=== PATIENT | male | born 1970 | race Caucasian/White ===

== ENCOUNTER 2018-02-10 16:51 | Emergency (ER) | payer MEDICARE ==
[~2018-02-10] VITALS: Ht 190.5 cm; Wt 76.0 kg
[2018-02-10 17:33] VITALS: BP 159/75; PULSE 71; RESP 16; TEMP 98.7; O2SAT 99
--- NOTE | 2018-02-10 18:21 | PD ---
HPI Chief Complaint: Musculoskeletal Complaint Time Seen by Provider: 18:11 Travel History International Travel<30 days: No Contact w/Intl Traveler<30days: No Traveled to known affect area: No History of Present Illness HPI 47-year-old male here for evaluation of left upper back pain that radiates around to his left anterior chest. Pain started 4 days ago while at rest. Pain is sharp, worse with movements, palpation, and inspiration. He reports that he is unable to take a deep breath because of the pain. He smokes about a half pack of cigarettes daily. Denies any history of cardiac disease. No history of DVT or PE. He does have a benign brain tumor and is currently on antibiotics for it. No hemoptysis. [facility] Social History Tobacco Use: Yes Allergies-Medications (Allergen,Severity, Reaction): Coded Allergies: No Known Allergies (Unverified , 02/10/18) Review of Systems Except as stated in HPI: all other systems reviewed are Neg Physical Exam Narrative GENERAL: Well-developed, well-nourished, comfortable, no apparent distress. SKIN: Focused skin assessment warm/dry. No rash. HEAD: Atraumatic. Normocephalic. EYES: Pupils equal and round. No scleral icterus. No injection or drainage. ENT: Mucous membranes pink and moist. NECK: Trachea midline. No JVD. CARDIOVASCULAR: Regular rate and rhythm. No murmur appreciated. RESPIRATORY: No accessory muscle use. Clear to auscultation. Breath sounds equal bilaterally. GASTROINTESTINAL: Abdomen soft, non-tender, nondistended. MUSCULOSKELETAL: Moderate left upper back, lateral chest wall, and anterior chest wall tenderness without crepitus, without step-off, without paradoxical chest wall movements. No midline vertebral step-off or tenderness. No obvious deformities. No clubbing. No cyanosis. No edema. NEUROLOGICAL: Awake and alert. No obvious cranial nerve deficits. Motor grossly within normal limits. Normal speech. PSYCHIATRIC: Appropriate mood and affect; insight and judgment normal. Data Data Last Documented VS Vital Signs Date Time Temp Pulse Resp B/P (MAP) Pulse Ox O2 Delivery O2 Flow Rate FiO2 02/10/18 18:41 66 18 02/10/18 18:41 99 Room Air 02/10/18 17:33 98.7 159/75 (103) Orders Orders Complete Blood Count With Diff (02/10/18 18:16) Comprehensive Metabolic Panel (02/10/18 18:16) Act Partial Throm Time (Ptt) (02/10/18 18:16) Prothrombin Time / Inr (Pt) (02/10/18 18:16) Ckmb (Isoenzyme) Profile (02/10/18 18:16) Troponin I (02/10/18 18:16) Iv Access Insert/Monitor (02/10/18 18:16) Electrocardiogram (02/10/18 18:16) Ecg Monitoring (02/10/18 18:16) Oximetry (02/10/18 18:16) Oxygen Administration (02/10/18 18:16) Chest, Single Ap (02/10/18 18:16) Ct Pulmonary Angiogram (02/10/18 18:16) Sodium Chloride 0.9% Flush (Ns Flush) (02/10/18 18:30) Iohexol 350 Inj (Omnipaque 350 Inj) (02/10/18 19:24) Ketorolac Inj (Toradol Inj) (02/10/18 19:45) Ed Discharge Order (02/10/18 19:46) Labs Laboratory Tests Test 02/10/18 18:30 White Blood Count 9.9 TH/MM3 Red Blood Count 4.82 MIL/MM3 Hemoglobin 16.1 GM/DL Hematocrit 46.2 % Mean Corpuscular Volume 95.9 FL Mean Corpuscular Hemoglobin 33.5 PG Mean Corpuscular Hemoglobin Concent 34.9 % Red Cell Distribution Width 13.4 % Platelet Count 267 TH/MM3 Mean Platelet Volume 8.0 FL Neutrophils (%) (Auto) 64.3 % Lymphocytes (%) (Auto) 24.7 % Monocytes (%) (Auto) 8.2 % Eosinophils (%) (Auto) 2.1 % Basophils (%) (Auto) 0.7 % Neutrophils # (Auto) 6.4 TH/MM3 Lymphocytes # (Auto) 2.5 TH/MM3 Monocytes # (Auto) 0.8 TH/MM3 Eosinophils # (Auto) 0.2 TH/MM3 Basophils # (Auto) 0.1 TH/MM3 CBC Comment DIFF FINAL Differential Comment Prothrombin Time 10.2 SEC Prothromb Time International Ratio 1.0 RATIO Activated Partial Thromboplast Time 27.7 SEC Blood Urea Nitrogen 12 MG/DL Creatinine 0.86 MG/DL Random Glucose 94 MG/DL Total Protein 8.2 GM/DL Albumin 4.3 GM/DL Calcium Level 9.3 MG/DL Alkaline Phosphatase 93 U/L Aspartate Amino Transf (AST/SGOT) 18 U/L Alanine Aminotransferase (ALT/SGPT) 21 U/L Total Bilirubin 0.3 MG/DL Sodium Level 136 MEQ/L Potassium Level 3.9 MEQ/L Chloride Level 100 MEQ/L Carbon Dioxide Level 29.2 MEQ/L Anion Gap 7 MEQ/L Estimat Glomerular Filtration Rate 95 ML/MIN Total Creatine Kinase 83 U/L Troponin I LESS THAN 0.02 NG/ML MDM Medical Decision Making Medical Screen Exam Complete: Yes Emergency Medical Condition: Yes Differential Diagnosis ACS, pneumothorax, pericarditis, PE, pneumonia, musculoskeletal pain, shingles Narrative Course Vital signs show heart rate 71, blood pressure 159/75, pulse ox 99% on room air , oral temperature 98.7F. CBC is unremarkable. CMP is unremarkable. Cardiac enzymes are negative. Chest x-ray: No evidence of acute cardiopulmonary disease. CT pulmonary angiogram: CONCLUSION: 1. No pulmonary embolus or other acute cardiopulmonary disease demonstrated. 2. Mild emphysema and biapical scarring. 3. Left ventricular enlargement. 4. Gynecomastia. Patient was made aware of all findings. He is resting comfortably. The pain has been going on for 4 days and is definitely reproducible by palpating the patient's left chest wall. Patient likely has costochondritis/muscular pain. I told him to watch for the appearance of a rash as shingles is on the differential. I do not believe his pain is cardiopulmonary in nature at all. I believe he is stable for discharge home with outpatient follow-up with a primary care physician this week. NSAIDS/Rest. He was advised on when to return to the emergency department. He verbalizes understanding and agreement with plan. Diagnosis Primary Impression: Chest wall pain Referrals: [facility] 3 days Primary Care Physician 3 days Additional Instructions: Follow-up with a primary care physician this week. Return to the emergency department for worsening symptoms or any other concerns. Disposition: 01 DISCHARGE HOME Condition: Stable Montez Lugo MD Feb 10, 2018 18:21
[2018-02-10] MEDS ORDERED: SODIUM CHLORIDE 0.9% FLUSH 10 ML FLUSH IVF PRN (18:30)
[2018-02-10 18:41] VITALS: PULSE 66; RESP 18
[2018-02-10 18:49] LABS: AUTOMATED NEUTROPHIL # 6.4 TH/MM3 (1.8-7.7); BASOPHIL # 0.1 TH/MM3 (0-0.2); BASOPHIL % 0.7 % (0.0-2.0); EOSINOPHIL # 0.2 TH/MM3 (0-0.4); EOSINOPHIL % 2.1 % (0.0-4.0); HEMATOCRIT 46.2 % (39.0-51.0); HEMOGLOBIN 16.1 GM/DL (13.0-17.0); LYMPH % 24.7 % (9.0-44.0); LYMPHOCYTE # 2.5 TH/MM3 (1.0-4.8); MEAN CELL VOLUME 95.9 FL (80.0-100.0); MEAN CORPUSCULAR HEMOGLOBIN 33.5 PG (27.0-34.0); MEAN CORPUSCULAR HGB CONC 34.9 % (32.0-36.0); MONO % 8.2 % (0.0-8.0); MONOCYTE # 0.8 TH/MM3 (0-0.9); NEUT % 64.3 % (16.0-70.0); PLATELET COUNT 267 TH/MM3 (150-450); RED BLOOD COUNT 4.82 MIL/MM3 (4.50-5.90); RED CELL DISTRIBUTION WIDTH 13.4 % (11.6-17.2); WHITE BLOOD COUNT 9.9 TH/MM3 (4.0-11.0)
[2018-02-10 18:59] LABS: PROTHROMBIN TIME - PATIENT 10.2 SEC (9.8-11.6)
[2018-02-10 19:07] LABS: ALBUMIN 4.3 GM/DL (3.4-5.0); AST (GOT) 18 U/L (15-37); BICARBONATE 29.2 MEQ/L (21.0-32.0); BLOOD UREA NITROGEN 12 MG/DL (7-18); CALCIUM 9.3 MG/DL (8.5-10.1); CHLORIDE 100 MEQ/L (98-107); CREATININE 0.86 MG/DL (0.60-1.30); GLOMERULAR FILTRATION RATE 95 ML/MIN (>89); GLUCOSE,RANDOM 94 MG/DL (74-106); SODIUM (NA) 136 MEQ/L (136-145)
[2018-02-10 19:08] LABS: ALT (GPT) 21 U/L (12-78)
--- NOTE | 2018-02-10 19:11 | RADRPT ---
EXAM DATE/TIME: 02/10/2018 18:39 [facility] COMPARISON: No previous studies available for comparison. INDICATIONS : Left chest pain for several days. MEDICAL HISTORY : Beign brain tumor. SURGICAL HISTORY : Brain tumor removed. ENCOUNTER: Initial ACUITY: 4 - 6 days PAIN SCORE: 9/10 LOCATION: Bilateral chest FINDINGS: No infiltrate, effusion or pneumothorax. Mild biapical pleural and parenchymal scarring noted. Normal heart size and mediastinal silhouette. CONCLUSION: No evidence of acute cardiopulmonary disease. Jesu Garcia MD on February 10, 2018 at 19:09 Board Certified Radiologist. This report was verified electronically.
[2018-02-10 19:12] LABS: ALKALINE PHOSPHATASE 93 U/L (45-117); TOTAL BILIRUBIN ADULT 0.3 MG/DL (0.2-1.0); TOTAL PROTEIN 8.2 GM/DL (6.4-8.2); TROPONIN I LESS THAN 0.02 NG/ML (0.02-0.05)
[2018-02-10] MEDS ORDERED: IOHEXOL 350 MG/ML 10 ML VIAL (for RAD DIAG) IVCONTRAST ONE (19:24)
--- NOTE | 2018-02-10 19:38 | RADRPT ---
EXAM DATE/TIME: 02/10/2018 19:19 [facility] COMPARISON: No previous studies available for comparison. INDICATIONS : Left sided chest pain. IV CONTRAST: 75 cc Omnipaque 350 (iohexol) IV RADIATION DOSE: 4.57 CTDIvol (mGy) MEDICAL HISTORY : None SURGICAL HISTORY : None. ENCOUNTER: Initial ACUITY: 1 day PAIN SCALE: 9/10 LOCATION: Left chest TECHNIQUE: Volumetric scanning of the chest was performed using a pulmonary embolism protocol MIP images were re constructed. Using automated exposure control and adjustment of the mA and/or kV according to patien t size, radiation dose was kept as low as reasonably achievable to obtain optimal diagnostic quality images. DICOM format image data is available electronically for review and comparison. Follow-up recommendations for detected pulmonary nodules are based at a minimum on nodule size and pa tient risk factors according to Fleischner Society Guidelines. FINDINGS: PULMONARY ARTERIES: No filling defects are seen in the pulmonary arteries through the segmental level. LUNGS: There is mild emphysema. Mild pleural and parenchymal scarring seen in both apices. PLEURAE: There is no pleural thickening or pleural effusion. MEDIASTINUM: There is good visualization of the great vessels of the middle mediastinum. No evidence of mediastin al or hilar adenopathy/mass. Apparent left ventricular enlargement. MUSCULOSKELETAL: Within normal limits for patient age. MISCELLANEOUS: The visualized upper abdominal organs demonstrate no acute abnormality. Bilateral symmetric gynecomas tia incidentally noted. CONCLUSION: 1. No pulmonary embolus or other acute cardiopulmonary disease demonstrated. 2. Mild emphysema and biapical scarring. 3. Left ventricular enlargement. 4. Gynecomastia. Jesu Garcia MD on February 10, 2018 at 19:34 Board Certified Radiologist. This report was verified electronically.
[2018-02-10] MEDS ORDERED: KETOROLAC TROMETHAMINE 30 MG/ML (IVP) VIAL IV PUSH ONE (19:45)
--- NOTE | 2018-02-11 13:52 | EKG ---
Date Performed: 02/10/2018 Time Performed: 18:50:01 PTAGE: 47 years EKG: Sinus rhythm NORMAL ECG NO PREVIOUS TRACING DOCTOR: Erendira Espitia Interpretating Date/Time 02/11/2018 13:50:26
== END 2018-02-10 19:56 | disposition home or self-care (01) ==
LOC: NEPD 16:51
DX: R07.89 Other chest pain (principal); Z72.0 Tobacco use
CPT/HCPCS: 71045; 71275; 80053; 82550; 84484; 85025; 85610; 85730; 93005; 96374; 99285; J1885; Q9967

== ENCOUNTER 2018-09-02 12:20 | Inpatient (IN) ==
[2018-09-02] MEDS ORDERED: Sod Chloride 0.9% Inj 1,000 ML IV.SIG ONE (12:46)
[2018-09-02 12:58] LABS: Baso # (Auto) 0.1 th/mm3 (0.0-0.2); Baso % (Auto) 0.6 % (0.0-2.0); Eos % (Auto) 0.3 % (0.0-4.0); Hematocrit 48.8 % (39.0-51.0); Hemoglobin 17.2 gm/dL (13.0-17.0); Lymph # (Auto) 2.1 th/mm3 (1.0-4.8); Lymph % (Auto) 20.2 % (9.0-44.0); Mean Corpuscular HGB Conc 35.2 % (32.0-36.0); Mean Corpuscular Hemoglobin 33.1 pg (27.0-34.0); Mean Corpuscular Volume 93.8 fL (80.0-100.0); Mean Platelet Volume 8.5 fL (7.0-11.0); Mono # (Auto) 0.9 th/mm3 (0.0-0.9); Mono % (Auto) 8.6 % (0.0-8.0); Neut # (Auto) 7.1 th/mm3 (1.8-7.7); Neut % (Auto) 70.3 % (16.0-70.0); Platelet Count 251 th/mm3 (150-450); Red Cell Distribution Width 13.4 % (11.6-17.2); White Blood Count 10.2 th/mm3 (4.0-11.0)
--- NOTE | 2018-09-02 13:14 | ED ---
HPI General Chief Complaint: Medical Clearance Stated Complaint: Medical Time Seen by Provider: 09/02/18 12:29 Source: patient and family Mode of arrival: ambulatory Limitations: other (Memory lapse) History of Present Illness HPI Narrative: The patient is a 48-year-old male with history significant for brain tumor that was diagnosed 2011 presented with complaint of increased weakness for the past 5 days and also reporting that he has been having 10-12 seizures per day. The patient is on Keppra, lamotrigine ingestion to follow-up as an outpatient but he did not. He is also in the process of seeing a neurosurgeon and was scheduled to see Dr. Sotomayor but has not visited yet. They are here for evaluation of weakness. reports daily headaches. reports daily seizures most unwitnessed but the patient is aware after the event MD complaint: Reports seizure Witnessed: no Seizure History: Reports known seizure disorder Place: home Possible Precipitating Event: Reports none Associated symptoms: Reports denies other symptoms Treatments prior to arrival: Reports none Related Data Home Medications Medication Instructions Recorded Confirmed lamotrigine [Lamictal] 100 mg PO QAM 09/02/18 09/02/18 lamotrigine [Lamictal] 200 mg PO HS 09/02/18 09/02/18 levetiracetam [Keppra] 1,500 mg PO BID 09/02/18 09/02/18 oxcarbazepine [Trileptal] 300 mg PO BID 09/02/18 09/02/18 Allergies Allergy/AdvReac Type Severity Reaction Status Date / Time No Known Allergies Allergy Verified 09/02/18 12:28 Review of Systems ROS: all other systems reviewed are negative [facility] Medical History Medical History Brain tumor (Acute) Seizures (Acute) Surgical History Surgical History H/O knee surgery (Acute) Social History Social History Substance History: No History of Abuse Second Hand Smoke Exposure: No Smoking Status: Former smoker How Often Do You Have a Drink Containing Alcohol: Never Recent Travel in [facility] within the Last 8 Weeks: No Recent Out of Country Travel within the Last 8 Weeks: No Immunization History Tetanus Immunization: Unsure Hx Influenza Vaccine This Season: No Exam Narrative Exam Narrative: GENERAL: Alert and oriented in no distress SKIN: Focused skin assessment warm/dry. HEAD: Atraumatic. Normocephalic. EYES: Pupils equal and round. No scleral icterus. No injection or drainage. ENT: No nasal bleeding or discharge. Mucous membranes pink and moist. NECK: Trachea midline. No JVD. CARDIOVASCULAR: Regular rate and rhythm. No murmur appreciated. RESPIRATORY: No accessory muscle use. Clear to auscultation. Breath sounds equal bilaterally. GASTROINTESTINAL: Abdomen soft, non-tender, nondistended. Hepatic and splenic margins not palpable. MUSCULOSKELETAL: No obvious deformities. No clubbing. No cyanosis. No edema. PSYCHIATRIC: Appropriate mood and affect; insight and judgment normal. Neuro General: alert, awake, oriented x3, gait normal, tone normal, moves all extremities, normal light touch, pain and propioception, no meningeal signs, no focal motor deficits, CN's II-XI intact bilaterally and normal sensation to monofilament Cognition: normal cognition Speech: speech normal Course Consultations Consultation #1: Dr. Sterling Brown neurology recommends IV Solu-Medrol 4 mg every 6 hours admission and neurosurgical consultation. Patient with large mass and some found seen 4 mm herniation no focal deficits. Followed up with neurology's recommendations as well as neurosurgery will be admitted to the ICU. Time: 14:41 Initial Documented Vital Signs Temperature 98 F 09/02/18 12:22 Pulse Rate 94 H 09/02/18 12:22 Respiratory Rate 18 09/02/18 12:22 Blood Pressure 135/89 09/02/18 12:22 Pulse Oximetry 97 09/02/18 12:22 Last Documented Vital Signs Temperature 98 F 09/02/18 12:22 Pulse Rate 82 09/02/18 12:28 Respiratory Rate 18 09/02/18 12:28 Blood Pressure 148/87 H 09/02/18 12:28 Pulse Oximetry 98 09/02/18 12:28 Critical Care Time Critical Care Time: Yes Total Critical Care Time: 30 Attestation: Aggregate critical care time was 30 minutes. Time to perform other separately billable procedures was not included in the critical care time. My time did not include minutes spent treating any other patients simultaneously or on activities that did not directly contribute to the patient's treatment. The services I provided to this patient were to treat and/or prevent clinically significant deterioration that could result in: permanent disablity and or I provided critical care services requiring my management, as noted below: Chart data review, documentation time, medication orders and management, vital sign assessments/reviewing monitor data, ordering and reviewing lab tests, ordering and interpreting/reviewing x-rays and diagnostic studies, care of the patient and discussion of the patient with the admitting physicians. Medical Decision Making MDM Narrative Medical decision making narrative: Patient with large left parietal mass with mass-effect discussed with neurology and neurosurgery are aware of the patient. He is hemodynamically stable nonfocal. Steroids given Keppra given will admit. Medical Screen Exam Complete: Yes Emergency Medical Condition: Yes Lab Data Lab results reviewed: Yes I reviewed the patient's lab results. Result diagrams: 09/02/18 12:50 09/02/18 12:50 Lab Results 09/02/18 09/02/18 09/02/18 Range/Units 12:50 12:50 12:50 WBC 10.2 (4.0-11.0) th/mm3 RBC 5.20 (4.50-5.90) mil/mm3 Hgb 17.2 H (13.0-17.0) gm/dL Hct 48.8 (39.0-51.0) % MCV 93.8 (80.0-100.0) fL MCH 33.1 (27.0-34.0) pg MCHC 35.2 (32.0-36.0) % RDW 13.4 (11.6-17.2) % Plt Count 251 (150-450) th/mm3 MPV 8.5 (7.0-11.0) fL Neut % (Auto) 70.3 H (16.0-70.0) % Lymph % (Auto) 20.2 (9.0-44.0) % [place] % (Auto) 8.6 H (0.0-8.0) % Eos % (Auto) 0.3 (0.0-4.0) % Baso % (Auto) 0.6 (0.0-2.0) % Neut # (Auto) 7.1 (1.8-7.7) th/mm3 Lymph # (Auto) 2.1 (1.0-4.8) th/mm3 [place] # (Auto) 0.9 (0.0-0.9) th/mm3 Eos # (Auto) 0.0 (0.0-0.4) th/mm3 Baso # (Auto) 0.1 (0.0-0.2) th/mm3 WBC Differential . Differential Comment Auto diff final Sodium 130 L (136-145) meq/L Potassium 3.0 L (3.5-5.1) meq/L Chloride 98 (98-107) meq/L Carbon Dioxide 28.8 (21.0-32.0) meq/L Anion Gap 3 L (5-15) meq/L BUN 15 (7-18) mg/dL Creatinine 1.02 (0.60-1.30) mg/dL Estimated GFR 78 L (>89) mL/min Random Glucose 155 H (74-106) mg/dL Calcium 9.3 (8.5-10.1) mg/dL Total Creatine Kinase 60 (39-308) U/L Imaging Data Radiologist's impression: Head CT 09/02/18 12:43 CONCLUSION: 1. Apparent vasogenic edema extends into the left parietal lobe and there is 4 mm of subfalcine herniation to the right. MRI of the brain with contrast would be helpful to rule out underlying lesion resulting in extensive vasogenic edema on the left. No acute hemorrhage is noted. No definite acute infarct is noted. 2. Large collection of CSF within the left temporal region. . Chest X-Ray 09/02/18 12:46 CONCLUSION: Negative examination. ECG Data Attestation: I personally reviewed and interpreted this ECG as follows: Interpretation: Normal sinus rhythm rate of 72 bpm. QTC at 417, CT 144. Left atrial enlargement. Normal axis. No signs of acute ischemia. Nonspecific ST- T wave abnormality Discharge Plan Discharge Disposition Patient Disposition: 30 Still Patient Discharge Condition Condition: Critical Discharge Details Diagnosis: Mass of temporoparietal region of brain, Acute hypokalemia Physicians Team ED Provider: Jericho Felipe Primary Care Provider: Primary Care Physici,No Other Providers: Ruy Sotomayor ; Sterling Brown Rxs /Orders / Referrals /Forms Prescriptions: No Action oxcarbazepine [Trileptal] 300 mg Tablet 300 mg PO BID RF: 0 lamotrigine [Lamictal] 100 mg Tablet 100 mg PO QAM RF: 0 lamotrigine [Lamictal] 100 mg Tablet 200 mg PO HS RF: 0 levetiracetam [Keppra] 1,000 mg Tablet 1,500 mg PO BID RF: 0 Discharge Interventions Interventions: Vital Signs Last Done: 09/02/18 12:28 Status ED Status: Pending Admission
[2018-09-02 13:16] LABS: Calcium 9.3 mg/dL (8.5-10.1); Carbon Dioxide 28.8 meq/L (21.0-32.0)
--- NOTE | 2018-09-02 13:28 | XR ---
EXAM DATE: 09/02/2018 12:46 PM EDT AGE/SEX: 48 years / Male INDICATIONS: Weakness, seizures, short of breath CLINICAL DATA: This is the patient's initial encounter. Patient reports that signs and symptoms have been present for 1 day and indicates a pain score of 0/10. MEDICAL/SURGICAL HISTORY: . benign brain tumors Craniotomy. COMPARISON: [facility] [place], CHEST SINGLE AP, 02/10/2018. . FINDINGS: A single AP view of the chest demonstrates the lungs to be symmetrically aerated without evidence of mass, infiltrate or effusion. The cardiomediastinal contours are unremarkable. Osseous structures a re intact. CONCLUSION: Negative examination. Electronically signed by: Hieu Broderick MD 09/02/2018 1:26 PM EDT
--- NOTE | 2018-09-02 13:38 | CT ---
EXAM DATE: 09/02/2018 12:51 PM EDT AGE/SEX: 48 years / Male INDICATIONS: Increase seizure activity known brain tumor CLINICAL DATA: This is the patient's initial encounter. Patient reports that signs and symptoms have been present for 1 day and indicates a pain score of 2/10. MEDICAL/SURGICAL HISTORY: . Brain tumor . orthopedic RADIATION DOSE: 36.22 CTDI (mGy) COMPARISON: No prior exams available for comparison. TECHNIQUE: CT of the head without contrast. Using automated exposure control and adjustment of the mA and/or kV according to patient size, radiation dose was kept as low as reasonably achievable to ob tain optimal diagnostic quality images. DICOM format image data is available electronically for revi ew and comparison. FINDINGS: Cerebrum: There is a large collection of CSF within the left temporal region. Apparent vasogenic carissa ma extends into the left parietal lobe and there is 4 mm of subfalcine herniation to the right. MRI o f the brain with contrast would be helpful to rule out underlying lesion resulting in extensive vasog enic edema on the left. No acute hemorrhage is noted. No definite acute infarct is noted. Posterior Fossa: The cerebellum and brainstem are intact. The 4th ventricle is midline. The cerebe llopontine angle is unremarkable. Extracranial: The visualized portion of the orbits is intact. Skull: The calvaria is intact. No evidence of skull fracture. The patient is status post left tempo roparietal craniotomy. CONCLUSION: 1. Apparent vasogenic edema extends into the left parietal lobe and there is 4 mm of subfalcine eyad iation to the right. MRI of the brain with contrast would be helpful to rule out underlying lesion re sulting in extensive vasogenic edema on the left. No acute hemorrhage is noted. No definite acute inf arct is noted. 2. Large collection of CSF within the left temporal region. . Electronically signed by: Hieu Broderick MD 09/02/2018 1:36 PM EDT
[2018-09-02] MEDS ORDERED: Gadobutrol PF 7.5 MMOL/7.5 ML Vial (for RAD) IV.SIG ONE (15:30)
[2018-09-02] MEDS ORDERED: Magnesium Sulfate Inj 4 GM in Sodium Chlor 0.9% Inj 92 ML IV.SIG PRN (15:34)
[2018-09-02] MEDS ORDERED: Sodium Phosphate Inj 30 MMOL in Sodium Chlor 0.9% Inj 250 ML IV.SIG PRN (15:34)
[2018-09-02] MEDS ORDERED: Magnesium Oxide 400 MG Tablet PO PRN (15:34)
[2018-09-02] MEDS ORDERED: Potassium Chlor 20 mEq Premix 20 MEQ/100 ML PIGGYBACK IV.SIG PRN ×2 (15:34)
[2018-09-02] MEDS ORDERED: Potassium Phosphate 500 MG Soluble Tablet PO PRN ×2 (15:34)
[2018-09-02] MEDS ORDERED: Potassium Chloride 25 MEQ Effervescent Tablet PO PRN (15:34)
[2018-09-02] MEDS ORDERED: Magnesium Sulfate Inj 2 GM in Sodium Chlor 0.9% Inj 96 ML IV.SIG PRN (15:34)
[2018-09-02] MEDS ORDERED: Potassium Chlor 40 mEq Premix 40 MEQ/100 ML PIGGYBACK IV.SIG PRN ×2 (15:34)
[2018-09-02] MEDS ORDERED: Potassium Phosphate Inj 30 MMOL in Sodium Chlor 0.9% Inj 250 ML IV.SIG PRN (15:34)
[2018-09-02] MEDS ORDERED: Dextrose 50% in Water 50 ML Vial IV.PUSH PRN (15:35)
[2018-09-02] MEDS ORDERED: Bisacodyl 10 MG Supp RECTAL PRN (15:35)
[2018-09-02] MEDS ORDERED: Acetaminophen 325 MG Tablet PO PRN (15:35)
--- NOTE | 2018-09-02 15:41 | P.HPCC ---
History of Present Illness Service: Critical care medicine Primary Care Physician: No Primary Care Physician Chief Complaint: Seizures History of Present Illness: This is a 48-year-old male. Date of admission 09/02/2018. Past medical history includes seizure disorder NOS.. 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 He states there was a part of treatment they were unable to remove. He had follow-ups until 2014 at [facility] which he states were "stable. He has not received follow-up until approximately 3 months ago he saw Dr. Brown where he states that this tumor mass was found and he recommended follow-up with Dr. Sotomayor as an outpatient. Currently, patient is on levetiracetam, lamotrigine and oxcarbazepine. Recently within the past several weeks, patient has had "10-12" seizures daily. No prodrome according to patient. Patient deficits appear to be right-sided with lifting the right leg and blank stare to the right and snapping/movement of the right upper extremity. Patient is on [address] brain today revealed right parietal lobe mass with vasogenic edema with a 4 mm subfalcine shift/herniation. MRI brain was recommended. Dr. Brown/ neurology was consulted. Currently on dexamethasone 4 mg IV every 6 hours. Continue antiepileptics. Neurological consultation with Dr. Sotomayor is currently ongoing. Patient is currently undergoing an MRI of the brain. This revealed post left craniotomy with a large cystic area involving the lower temporal lobe region measuring up to approximately 6.3 x 4.6 cm in greatest AP and transverse diameter. Directly above and contiguous with this is a large masslike region measuring up to 6.6 x 5 cm in greatest AP and transverse diameter with no significant enhancement. This encases portions of the left middle cerebral artery. This involves portions of the left temporal lobe as well as the inferior frontal lobe and parietal lobe. There is mass effect and midline shift to the left of approximately 7 mm. Portions of the left lateral ventricle are partially effaced. Patient was loaded with 1 g levetiracetam in the ED along with 40 mEq potassium chloride for low potassium. Review of Systems Constitutional: Denies anorexia, Denies body ache(s), Denies chills, Denies daytime sleepiness, Denies excessive sweating Eyes: Denies blind spots, Denies change in vision Ears, Nose, Mouth, and Throat: Denies abnormal hearing, Denies sinus pain, Denies sore throat Cardiovascular: Denies chest pain, Denies shortness of breath Respiratory: Denies chest congestion, Denies cough Gastrointestinal: Denies abdominal pain, Denies nausea, Denies vomiting Genitourinary: Denies urinary frequency Musculoskeletal: Denies abnormal walking, Denies body aches Skin/Breast: Denies acne, Denies skin ulcer Neurologic: Reports seizure-like activity, Denies abnormal hearing, Denies abnormal walking, Denies convulsions Psychiatric: Reports anxiety, Denies memory loss Endocrine: Denies cold intolerance, Denies excessive sweating Hematologic/Lymphatic: Denies easy bleeding Allergic/Immunologic: Denies GI upset with certain foods PMFSH - History History Provided By: Patient - Medical History Medical History: Medical History (Last Reviewed 09/02/18 @ 13:13 by Jericho Felipe DO) Brain tumor Seizures - Surgical History Surgical History: Surgical History (Last Updated 09/02/18 @ 16:12 by Vick Jordan MD) Hx of craniotomy H/O knee surgery - Family History Family History: Family History (Last Updated 09/02/18 @ 15:45 by Vick Jordan MD) Other Family history normal - Social History I have reviewed the patient's Social History: Yes - Tobacco History Second Hand Smoke Exposure: No Tobacco Use In Past 30 Days: No Smoking Status: Former smoker - Alcohol History How Often Do You Have a Drink Containing Alcohol: Never - Substance Use History Substance History: No History of Abuse - Travel History Recent Travel in the [place] Within the Last 8 Weeks: No Recent Travel Out of the Country Within the Last 8 Weeks: No - Immunization History Tetanus Immunization: Unsure Hx Influenza Vaccine This Season: No Medications and Allergies Active Medications: Active Medications Acetaminophen (Tylenol) 650 mg PO Q6H PRN PRN Reason: PAIN 1-10 AND/OR FEVER >101F Al Hydroxide/Mg Hydroxide (Milk Of Magnesia Liq) 30 ml PO Q12H PRN PRN Reason: Mild Constipation Albuterol (Albuterol Neb (Farzana)) 2.5 mg NEB Q2HR NEB PRN PRN Reason: SHORTNESS OF BREATH/WHEEZING Bisacodyl (Dulcolax Supp) 10 mg RECTAL DAILY PRN PRN Reason: SEVERE CONSITIPATION Chlorhexidine Gluconate (Chlorhexidine 2% Cloth) 3 pack TOPICAL DAILY@0400 FARZANA Stop: 09/08/18 03:59 Chlorhexidine Gluconate (Chlorhexidine 2% Cloth) 3 pack TOPICAL DAILY@0400 PRN PRN Reason: Extra cloth needed Stop: 09/08/18 03:59 Dexamethasone Sodium Phosphate (Decadron Inj) 4 mg IV.PUSH Q6HR FARZANA Dextrose (D50w Vial) 50 ml IV.PUSH UNSCH PRN PRN Reason: PER HYPOGLYCEMIA PROTOCOL Glucagon (Glucagon Inj) 1 mg OTHER PRN PRN PRN Reason: for Hypoglycemia Protocol Sodium Chloride 188 meq/ (Sodium Chloride) 1,047 mls @ 42 mls/hr IV.CONT .Q24H FARZANA Magnesium Sulfate 4 gm/ Sodium (Chloride) 100 mls @ 50 mls/hr IV.SIG UNSCH PRN PRN Reason: For Magnesium 0.9 - 1.1 mg/dL Magnesium Sulfate 2 gm/ Sodium (Chloride) 100 mls @ 50 mls/hr IV.SIG UNSCH PRN PRN Reason: For Magnesium 1.2 - 1.6 mg/dL Potassium Chloride (Kcl 40 Meq Premix Inj) 40 meq in 100 mls @ 25 mls/hr IV.SIG Q2H PRN PRN Reason: For Potassium 2.8 - 3.2 mEq/L Potassium Chloride (Kcl 20 Meq Premix Inj) 20 meq in 100 mls @ 50 mls/hr IV.SIG Q2H PRN PRN Reason: For Potassium 3.3 - 3.5 mEq/L Potassium Chloride (Kcl 40 Meq Premix Inj) 40 meq in 100 mls @ 25 mls/hr IV.SIG UNSCH PRN PRN Reason: For Potassium 3.3 - 3.5 mEq/L Potassium Chloride (Kcl 20 Meq Premix Inj) 20 meq in 100 mls @ 50 mls/hr IV.SIG Q2H PRN PRN Reason: For Potassium 2.8 - 3.2 mEq/L Potassium Phosphate 30 mmol/ (Sodium Chloride) 260 mls @ 42 mls/hr IV.SIG UNSCH PRN PRN Reason: SEE LABEL COMMENTS Sodium Phosphate 30 mmol/ (Sodium Chloride) 260 mls @ 42 mls/hr IV.SIG UNSCH PRN PRN Reason: For Phosphorus < 2.5 mg/dL Insulin Aspart (Novolog Insulin Correctional Sugar Inj) 0 unit SQ Q6HR [facility]; Protocol Lactulose (Lactulose Liq) 30 ml PO DAILY PRN PRN Reason: SEVERE CONSITIPATION Lamotrigine (Lamictal) 200 mg PO HS [facility] Lamotrigine (Lamictal) 100 mg PO QAM [facility] Magnesium Oxide (Mag-Ox) 800 mg PO UNSCH PRN PRN Reason: For Magnesium 1.2 - 1.6 mg/dL Non-Formulary Medication (Levetiracetam [Keppra]) 1,500 mg PO BID [facility] Ondansetron HCl (Zofran Inj) 4 mg IV.PUSH Q6H PRN PRN Reason: NAUSEA OR VOMITING Oxcarbazepine (Trileptal) 300 mg PO BID [facility] Pantoprazole Sodium (Protonix) 40 mg PO DAILY [facility] Potassium Bicarb/Potassium Chloride (K-Lyte Cl Eff) 50 meq PO UNSCH PRN PRN Reason: For Potassium 3.3 - 3.5 mEq/L Potassium Phosphate (K-Phos Original) 2,000 mg PO Q4H PRN PRN Reason: Phosphorus Less Than 2.5 mg/dL Potassium Phosphate (K-Phos Original) 2,000 mg PO UNSCH PRN PRN Reason: SEE LABEL COMMENTS Senna/Docusate Sodium (Nevin-Colace) 1 tab PO BID [facility] Sennosides (Senokot) 17.2 mg PO Q12H PRN PRN Reason: Moderate Constipation Sodium Chloride (Ns Flush) 2 ml IV.FLUSH BID [facility] Sodium Chloride (Ns Flush) 2 ml IV.FLUSH PRN PRN PRN Reason: FLUSH AFTER USING IV ACCESS Allergies Allergy/AdvReac Type Severity Reaction Status Date / Time No Known Allergies Allergy Verified 09/02/18 12:28 Home Medications Medication Instructions Recorded Confirmed Type lamotrigine [Lamictal] 100 mg PO QAM 09/02/18 09/02/18 History lamotrigine [Lamictal] 200 mg PO HS 09/02/18 09/02/18 History levetiracetam [Keppra] 1,500 mg PO BID 09/02/18 09/02/18 History oxcarbazepine [Trileptal] 300 mg PO BID 09/02/18 09/02/18 History Results - Labs CBC & Chem 7: 09/02/18 12:50 09/02/18 12:50 Labs: Short CBC 09/02/18 Range/Units 12:50 WBC 10.2 (4.0-11.0) th/mm3 Hgb 17.2 H (13.0-17.0) gm/dL Hct 48.8 (39.0-51.0) % Plt Count 251 (150-450) th/mm3 BMP 09/02/18 12:50 Sodium 130 L Potassium 3.0 L Chloride 98 Carbon Dioxide 28.8 BUN 15 Creatinine 1.02 Calcium 9.3 Cardiac Enzymes 09/02/18 Range/Units 12:50 Total Creatine Kinase 60 (39-308) U/L - Imaging Impressions Head CT 09/02/18 12:43 CONCLUSION: 1. Apparent vasogenic edema extends into the left parietal lobe and there is 4 mm of subfalcine herniation to the right. MRI of the brain with contrast would be helpful to rule out underlying lesion resulting in extensive vasogenic edema on the left. No acute hemorrhage is noted. No definite acute infarct is noted. 2. Large collection of CSF within the left temporal region. . Chest X-Ray 09/02/18 12:46 CONCLUSION: Negative examination. Exam Vital signs: Vital Signs 09/02/18 12:22 09/02/18 12:28 Temperature 98 F Pulse Rate 94 H 82 Respiratory Rate 18 18 Blood Pressure 135/89 148/87 H Pulse Oximetry 97 98 Intake & Output 09/01/18 09/02/18 09/02/18 18:59 06:59 18:59 Intake Total 1000 / 1000 Balance 1000 / 1000 Weight 72.575 kg Intake: IV 1000 / 1000 NS Inj 1,000 ML @ Wide Open IV. 1000 / 1000 SIG BOLUS ONE Rx#:[id number] - Constitutional no acute distress - Routine HEENT Exam Head: Present: normocephalic, atraumatic Eye: Present: EOMI, PERRL, normal accommodation ENT: Present: mucous membranes moist - Routine Neck Exam Present: supple, full ROM. Absent: JVD, carotid bruit - Routine Chest/Breast/Axilla Exam Chest wall: Absent: tenderness Breast: Absent: tenderness Axillae: Absent: lymphadenopathy - Routine Respiratory Exam Present: CTA bilaterally. Absent: accessory muscle use, rhonchi, stridor, wheezes - Routine Cardiovascular Exam Present: RRR, S1, S2. Absent: murmur - Routine Abdominal Exam Present: soft, normoactive bowel sounds - Routine Extremities Exam Absent: cyanosis, clubbing, edema - Routine Skin Exam Present: intact - Routine Neurological Exam Present: alert, oriented X3, CN II-XII intact. Absent: sensory deficit, motor deficit Septic Shock Reassessment Septic shock perfusion: reassessment completed Caprini VTE Risk Assessment Caprini VTE Risk Assessment: No/Low Risk (score <= 1) VTE Pharmacological Exception Reason: Intracranial lesions Caprini Risk Assessment Model: Point Value = 1 Point Value = 2 Point Value = 3 Point Value = 5 Age 41-60 Minor surgery BMI > 25 kg/m2 Swollen legs Varicose veins or History of unexplained or recurrent spontaneous Oral contraceptives or hormone replacement Sepsis (< 1 month) Serious lung disease, including pneumonia (< 1 month) Abnormal pulmonary function Acute myocardial infarction Congestive heart failure (< 1 month) History of inflammatory bowel disease Medical patient at bed rest Age 61-74 Arthroscopic surgery Major open surgery (> 45 min) Laparoscopic surgery (> 45 min) Malignancy Confined to bed (> 72 hours) Immobilizing plaster cast Central venous access Age >= 75 History of VTE Family history of VTE Factor V Leiden Prothrombin [id number] Lupus anticoagulant Anticardiolipin antibodies Elevated serum homocysteine Heparin-induced thrombocytopenia Other congenital or acquired thrombophilia Stroke (< 1 month) Elective arthroplasty Hip, pelvis, or leg fracture Acute spinal cord injury (< 1 month) Prophylaxis Regimen: Total Risk Factor Score Risk Level Prophylaxis Regimen 0-1 Low Early ambulation 2 Moderate Order ONE of the following: *Sequential Compression Device (SCD) *Heparin 5000 units SQ BID 3-4 Higher Order ONE of the following medications: *Heparin 5000 units SQ TID *Enoxaparin/Lovenox 40 mg SQ daily (WT < 150 kg, CrCl > 30 mL/min) *Enoxaparin/Lovenox 30 mg SQ daily (WT < 150 kg, CrCl > 10-29 mL/min) *Enoxaparin/Lovenox 30 mg SQ BID (WT < 150 kg, CrCl > 30 mL/min) AND/OR *Sequential Compression Device (SCD) 5 or more Highest Order ONE of the following medications: *Heparin 5000 units SQ TID (Preferred with Epidurals) *Enoxaparin/Lovenox 40 mg SQ daily (WT < 150 kg, CrCl > 30 mL/min) *Enoxaparin/Lovenox 30 mg SQ daily (WT < 150 kg, CrCl > 10-29 mL/min) *Enoxaparin/Lovenox 30 mg SQ BID (WT < 150 kg, CrCl > 30 mL/min) AND *Sequential Compression Device (SCD) Assessment and Plan - Assessment and Plan Plan: Neuro/Psych: Left parietal lobe mass with vasogenic edema/4 mm subfalcine shift/herniation History of left craniotomy for "benign" brain mass per patient report Seizure disorder CT brain revealed left parietal lobe vasogenic edema [address] Brown/neurology recommended expansile focus IV every 6 hours. Resume antibiotics including levetiracetam 1500 mg twice daily, oxcarbazepine 300 mg twice daily and lamotrigine 100 mg in the morning 200 mg at night. Seizure precautions MRI brain revealed post left craniotomy with a large cystic area involving the lower temporal lobe region measuring up to approximately 6.3 x 4.6 cm in greatest AP and transverse diameter. Directly above and contiguous with this is a large masslike region measuring up to 6.6 x 5 cm in greatest AP and transverse diameter with no significant enhancement. This encases portions of the left middle cerebral artery. This involves portions of the left temporal lobe as well as the inferior frontal lobe and parietal lobe. There is mass effect and midline shift to the left of approximately 7 mm. Portions of the left lateral ventricle are partially effaced. The masslike area demonstrates high signal on the T2 and FLAIR weighted images and is mildly inhomogeneous. On the T1-weighted images this demonstrates low signal. Dr. Sotomayor/neurosurgery will evaluate CV: Currently normal sinus rhythm. No indications for hypertensive's and/or vasopressors As needed labetalol and nicardipine drip ordered Resp: Former tobaccoism Nasal cannula to maintain saturations greater than equal to 92% Incentive spirometry while awake As needed albuterol aerosols every [address]. [address] pulmonary angiogram revealed emphysematous type changes 2017 GI: N.p.o. except for medications Pantoprazole for GI prophylaxis Docusate sodium/senna 1 tablet twice daily for bowel regimen : Straight cathed every 6 hours as needed Endo: Hyperglycemia/acute Sliding scale insulin Accu-Cheks to maintain euglycemia aspart insulin every 6 hours medium protocol. Renal: Creatinine currently within normal limits Monitor urine output Accurate I's and O's Heme: Polycythemia Monitor CBC daily. Follow trends. No indication for transfusion of blood products at this time ID: Monitor for signs and symptomatology infection FEN: Hypopotassemia Hyponatremia Received 40 mEq potassium chloride in ED. Currently 2% saline at 42 cc an hour. Check every 6 hours sodiums MSK: History of right total knee replacement PT evaluate and treat Access -Utilize peripheral IV. Central line if indicated Prophylaxis - GI - Pantoprazole - DVT - SCD/no pharmacologic prophylaxis in light of intracranial lesions Level 3 H&P
[2018-09-02] MEDS ORDERED: Labetalol HCl Inj 100 MG/20 ML Vial IV.PUSH PRN (15:50)
[2018-09-02] MEDS ORDERED: Sodium Chloride 23.4% Inj 188 MEQ in Sod Chloride 0.9% Inj 1,000 ML IV.CONT SCH (16:00)
--- NOTE | 2018-09-02 16:08 | MR ---
EXAM DATE: 09/02/2018 3:01 PM EDT AGE/SEX: 48 years / Male INDICATIONS: Mass. CLINICAL DATA: This is the patient's initial encounter. Patient reports that signs and symptoms have been present for > 1 year and indicates a pain score of 4/10. MEDICAL/SURGICAL HISTORY: Seizures. Brain mass. Craniotomy. Right knee surgery. COMPARISON: . TECHNIQUE: Multiplanar, multisequence examination of the brain was performed without and with 7 ml Ga davist (gadobutrol) contrast as a single exam dose. FINDINGS: The patient is status post left craniotomy with a large cystic area involving the lower temporal lobe region measuring up to approximately 6.3 x 4.6 cm in greatest AP and transverse diameter. Directly a andriy and contiguous with this is a large masslike region measuring up to 6.6 x 5 cm in greatest AP an d transverse diameter with no significant enhancement. This encases portions of the left middle cereb ral artery. This involves portions of the left temporal lobe as well as the inferior frontal lobe and parietal lobe. There is mass effect and midline shift to the left of approximately 7 mm. Portions of the left lateral ventricle are partially effaced. The masslike area demonstrates high signal on the T2 and FLAIR weighted images and is mildly inhomogeneous. On the T1-weighted images this demonstrates low signal. The posterior fossa and brainstem are intact. The pituitary gland is unremarkable. There is no eviden ce of acute hemorrhage. CONCLUSION: 1. Status post left craniotomy. 2. Large masslike area involving portions of the temporal, frontal and parietal lobe with no signifi cant enhancement. There is an adjacent large cystic structure as well which may be postsurgical. The differential diagnosis includes tumefactive necrosis from radiation and/or chemotherapy versus residu al tumor. Further evaluation with MR spectroscopy or short-term follow-up would be recommended. Electronically signed by: Rajinder Ivory MD 09/02/2018 4:07 PM EDT
--- NOTE | 2018-09-02 16:10 | P.CONNS ---
History of Present Illness Service: neurosurgery Consult date: 09/02/18 Requesting Physician: Vick Jordan Reason for Consult: Intracranial mass Primary Care Provider: No Primary Care Physician Chief Complaint: Seizures History of Present Illness: This is a 48-year-old male with history of seizure disorder andf an intracranial tumor..Apparently he was diagnosed with a benign brain tumor at [facility] in September 2011. her underwent a left frontal temporal parietal craniotomy. He states there was a part of the tumor that they were unable to remove. He had follow-ups until 2014 at [facility] which he states were "stable. He has not received follow-up until approximately 3 months ago he saw Dr. Brown where he states that this tumor mass was found and he recommended follow-up with a neurosurgeon as an outpatient. He is taking levetiracetam, lamotrigine and oxcarbazepine. OVER THE PAST several weeks, patient he had "10-12" seizures daily. No prodrome. During seizures right-sided with lifting the right leg and blank stare to the right and snapping/movement of the right upper extremity. CT brain today revealed right parietal lobe mass with vasogenic edema with a 4 mm subfalcine shift/herniation. Dr. Brown/neurology was consulted. Currently on dexamethasone 4 mg IV every 6 hours. Continue antiepileptics. He is currently undergoing an MRI of the brain. This revealed post left craniotomy with a large cystic area involving the lower temporal lobe region measuring up to approximately 6.3 x 4.6 cm in greatest AP and transverse diameter. Directly above and contiguous with this is a large masslike region measuring up to 6.6 x 5 cm in greatest AP and transverse diameter with no significant enhancement. This encases portions of the left middle cerebral artery. This involves portions of the left temporal lobe as well as the inferior frontal lobe and parietal lobe. There is mass effect and midline shift to the left of approximately 7 mm. Portions of the left lateral ventricle are partially effaced. The patient was loaded with 1 g levetiracetam in the ED. Neuriosurgery consultation was requested Review of Systems Constitutional: Denies anorexia, Denies body ache(s), Denies chills, Denies daytime sleepiness, Denies excessive sweating, Denies fatigue, Denies fever(s), Denies headache(s), Denies increased appetite, Denies lack of energy, Denies malaise, Denies night sweats, Denies weakness, Denies weight gain, Denies weight loss, Denies other Eyes: Reports blind spots, Reports blurry vision, Denies bulging eyes, Denies change in vision, Denies double vision, Denies discharge, Denies dry eyes, Denies floaters, Denies irritation, Denies itchy eyes, Denies loss of vision, Denies pain, Denies requires corrective lenses, Denies sensitivity to light, Denies other Ears, Nose, Mouth, and Throat: Denies abnormal hearing, Denies bleeding gums, Denies bad breath, Denies change in voice, Denies dental pain, Denies difficulty swallowing, Denies dizziness, Denies dry mouth, Denies ear discharge , Denies ear pain, Denies facial pain, Denies headache(s), Denies hearing loss, Denies hoarseness, Denies lip swelling, Denies nosebleed, Denies mouth lesions, Denies mouth pain, Denies nasal congestion, Denies nasal discharge, Denies nasal obstruction, Denies nasal trauma, Denies neck lump, Denies neck pain, Denies nose pain, Denies pain with swallowing, Denies poor balance, Denies post nasal drip, Denies ringing in the ears, Denies sinus pain, Denies sinus pressure , Denies sore throat, Denies throat swelling, Denies tongue swelling, Denies other Cardiovascular: Denies chest pain, Denies chest pain at rest, Denies chest pain with activity, Denies excessive sweating, Denies fainting, Denies fast heart rate, Denies foot swelling, Denies generalized swelling, Denies irregular heart rhythm, Denies leg pain with activity, Denies leg sores, Denies leg swelling, Denies lightheadedness, Denies radiating jaw, neck or arm pain, Denies rapid, pounding, or irregular heartbeat, Denies shortness of breath, Denies shortness of breath with activity, Denies shortness of breath when lying down, Denies shortness of breath causing sudden awakening, Denies slow heart rate, Denies other Respiratory: Denies change in phlegm color, Denies chest congestion, Denies cough, Denies coughing up blood, Denies excessive phlegm production, Denies pain on inspiration, Denies pain with cough, Denies shortness of breath, Denies shortness of breath with activity, Denies snoring, Denies stridor, Denies wheezing, Denies other Gastrointestinal: Denies abdominal pain, Denies belching, Denies black, tarry stools, Denies bloating, Denies bright, red blood in stools, Denies change in bowel habits, Denies constant urge to pass stool, Denies change in stools, Denies coffee ground vomit, Denies constipation, Denies cramping, Denies difficulty swallowing, Denies excessive passing of gas, Denies feeling full early, Denies heartburn, Denies incontinent of stools, Denies loose stools, Denies nausea, Denies pain with swallowing, Denies vomiting, Denies vomiting blood, Denies other Genitourinary: Denies blood in semen, Denies blood in urine, Denies decreased urination, Denies difficulty urinating, Denies difficulty with ejaculations, Denies erectile dysfunction, Denies genital lesions, Denies genital pain, Denies painful urination, Denies side pain, Denies frequent nighttime urination , Denies painful ejaculations, Denies penile discharge, Denies scrotal swelling , Denies testicle lump, Denies testicle pain, Denies urinary frequency, Denies urinary hesitancy, Denies urinary incontinence, Denies urinary urgency, Denies other Musculoskeletal: Denies abnormal walking, Denies back pain, Denies body aches, Denies decreased muscle mass, Denies deformity, Denies joint pain, Denies joint swelling, Denies limited joint movement, Denies loss of height, Denies muscle cramps, Denies muscle weakness, Denies neck pain, Denies numbness, Denies radiating pain into limb, Denies stiffness, Denies tingling, Denies other Skin/Breast: Denies acne, Denies bleeding lesions, Denies boil, Denies breast swelling, Denies breast skin changes, Denies breast pain, Denies breast lump, Denies change in breast shape, Denies change in hair, Denies change in skin color, Denies changing lesions, Denies dry skin, Denies excessive hair growth, Denies hair loss, Denies itching, Denies lesions, Denies nail changes, Denies new lesions, Denies nipple discharge, Denies non-healing lesions, Denies redness , Denies sensitivity to light, Denies rash, Denies skin pain, Denies skin ulcer , Denies sores, Denies stretch chavez, Denies unusual bruising, Denies wounds, Denies yellowing of the skin, Denies other Neurologic: Reports convulsions, Reports seizure-like activity, Reports tingling /numbness/burning sensations, Denies abnormal hearing, Denies abnormal movements , Denies abnormal speech, Denies abnormal walking, Denies behavioral changes, Denies burning sensations, Denies confusion, Denies dizziness, Denies fainting, Denies frequent falls, Denies headache(s), Denies lack of coordination, Denies localized weakness, Denies loss of vision, Denies memory loss, Denies numbness, Denies other visual disturbances, Denies radiating pain, Denies restless legs, Denies sensory deficit, Denies tingling, Denies tremor(s), Denies unsteadiness, Denies weakness, Denies other Psychiatric: Denies abnormal sleep pattern, Denies anxiety, Denies behavioral changes, Denies change in appetite, Denies change in sex drive, Denies confusion , Denies depression, Denies difficulty concentrating, Denies hearing things others do not hear, Denies hopelessness, Denies irritability, Denies lack of enjoyment, Denies memory loss, Denies mood swings, Denies panic attacks, Denies paranoia, Denies seeing things others do not see, Denies sensing things others do not sense, Denies tactile hallucinations, Denies thoughts of hurting/killing others, Denies thoughts of hurting/killing yourself, Denies other Endocrine: Denies cold intolerance, Denies excessive sweating, Denies flushing, Denies heat intolerance, Denies increased hunger, Denies increased thirst, Denies increased urination, Denies rapid, pounding, or irregular heartbeat, Denies other Hematologic/Lymphatic: Denies easy bleeding, Denies easy bruising, Denies enlarged lymph nodes, Denies other Allergic/Immunologic: Denies GI upset with certain foods, Denies hives, Denies itchy eyes, Denies lip swelling, Denies seasonal runny nose, Denies throat swelling, Denies tongue swelling, Denies wheezing, Denies other PMFSH - History History Provided By: Patient - Medical History Medical History: Medical History (Last Reviewed 09/05/18 @ 15:04 by Ruy Sotomayor MD) Brain tumor Seizures - Surgical History Surgical History: Surgical History (Last Reviewed 09/05/18 @ 15:04 by Ruy Sotomayor MD) H/O knee surgery Hx of craniotomy - Family History Family History: Family History (Last Reviewed 09/05/18 @ 15:04 by Ruy Sotomayor MD) Other Family history normal - Tobacco History Second Hand Smoke Exposure: No Tobacco Use In Past 30 Days: No Smoking Status: Former smoker - Alcohol History How Often Do You Have a Drink Containing Alcohol: Never - Substance Use History Substance History: No History of Abuse - Travel History Recent Travel in the [place] Within the Last 8 Weeks: No Recent Travel Out of the Country Within the Last 8 Weeks: No - Immunization History Tetanus Immunization: Unsure Hx Influenza Vaccine This Season: No Medications and Allergies Active Medications: Active Medications Acetaminophen (Tylenol) 650 mg PO Q6H PRN PRN Reason: PAIN 1-10 AND/OR FEVER >101F Al Hydroxide/Mg Hydroxide (Milk Of Génesis Liq) 30 ml PO Q12H PRN PRN Reason: Mild Constipation Albuterol (Albuterol Neb (Prn)) 2.5 mg NEB Q2HR NEB PRN PRN Reason: SHORTNESS OF BREATH/WHEEZING Bisacodyl (Dulcolax Supp) 10 mg RECTAL DAILY PRN PRN Reason: SEVERE CONSITIPATION Chlorhexidine Gluconate (Chlorhexidine 2% Cloth) 3 pack TOPICAL DAILY@0400 CARLOS Stop: 09/08/18 03:59 Chlorhexidine Gluconate (Chlorhexidine 2% Cloth) 3 pack TOPICAL DAILY@0400 PRN PRN Reason: Extra cloth needed Stop: 09/08/18 03:59 Dexamethasone Sodium Phosphate (Decadron Inj) 4 mg IV.PUSH Q6HR CARLOS Dextrose (D50w Vial) 50 ml IV.PUSH UNSCH PRN PRN Reason: PER HYPOGLYCEMIA PROTOCOL Glucagon (Glucagon Inj) 1 mg OTHER PRN PRN PRN Reason: for Hypoglycemia Protocol Sodium Chloride 188 meq/ (Sodium Chloride) 1,047 mls @ 42 mls/hr IV.CONT .Q24H CARLOS Magnesium Sulfate 4 gm/ Sodium (Chloride) 100 mls @ 50 mls/hr IV.SIG UNSCH PRN PRN Reason: For Magnesium 0.9 - 1.1 mg/dL Magnesium Sulfate 2 gm/ Sodium (Chloride) 100 mls @ 50 mls/hr IV.SIG UNSCH PRN PRN Reason: For Magnesium 1.2 - 1.6 mg/dL Potassium Chloride (Kcl 40 Meq Premix Inj) 40 meq in 100 mls @ 25 mls/hr IV.SIG Q2H PRN PRN Reason: For Potassium 2.8 - 3.2 mEq/L Potassium Chloride (Kcl 20 Meq Premix Inj) 20 meq in 100 mls @ 50 mls/hr IV.SIG Q2H PRN PRN Reason: For Potassium 3.3 - 3.5 mEq/L Potassium Chloride (Kcl 40 Meq Premix Inj) 40 meq in 100 mls @ 25 mls/hr IV.SIG UNSCH PRN PRN Reason: For Potassium 3.3 - 3.5 mEq/L Potassium Chloride (Kcl 20 Meq Premix Inj) 20 meq in 100 mls @ 50 mls/hr IV.SIG Q2H PRN PRN Reason: For Potassium 2.8 - 3.2 mEq/L Potassium Phosphate 30 mmol/ (Sodium Chloride) 260 mls @ 42 mls/hr IV.SIG UNSCH PRN PRN Reason: SEE LABEL COMMENTS Sodium Phosphate 30 mmol/ (Sodium Chloride) 260 mls @ 42 mls/hr IV.SIG UNSCH PRN PRN Reason: For Phosphorus < 2.5 mg/dL Nicardipine HCl 25 mg/ Sodium (Chloride) 250 mls @ 25 mls/hr IV.CONT TITRATE PRN; Protocol PRN Reason: Per Protocol Insulin Aspart (Novolog Insulin Correctional Sugar Inj) 0 unit SQ Q6HR CARLOS; Protocol Labetalol HCl (Trandate Inj) 10 mg IV.PUSH Q1H PRN PRN Reason: Sbp>160, Dbp>90, Hr>65 Lactulose (Lactulose Liq) 30 ml PO DAILY PRN PRN Reason: SEVERE CONSITIPATION Lamotrigine (Lamictal) 200 mg PO HS CARLOS Lamotrigine (Lamictal) 100 mg PO QAM CARLOS Magnesium Oxide (Mag-Ox) 800 mg PO UNSCH PRN PRN Reason: For Magnesium 1.2 - 1.6 mg/dL Non-Formulary Medication (Levetiracetam [Keppra]) 1,500 mg PO BID [facility] Ondansetron HCl (Zofran Inj) 4 mg IV.PUSH Q6H PRN PRN Reason: NAUSEA OR VOMITING Oxcarbazepine (Trileptal) 300 mg PO BID CARLOS Pantoprazole Sodium (Protonix) 40 mg PO DAILY CARLOS Potassium Bicarb/Potassium Chloride (K-Lyte Cl Eff) 50 meq PO UNSCH PRN PRN Reason: For Potassium 3.3 - 3.5 mEq/L Potassium Phosphate (K-Phos Original) 2,000 mg PO Q4H PRN PRN Reason: Phosphorus Less Than 2.5 mg/dL Potassium Phosphate (K-Phos Original) 2,000 mg PO UNSCH PRN PRN Reason: SEE LABEL COMMENTS Senna/Docusate Sodium (Nevin-Colace) 1 tab PO BID [facility] Sennosides (Senokot) 17.2 mg PO Q12H PRN PRN Reason: Moderate Constipation Sodium Chloride (Ns Flush) 2 ml IV.FLUSH BID CARLOS Sodium Chloride (Ns Flush) 2 ml IV.FLUSH PRN PRN PRN Reason: FLUSH AFTER USING IV ACCESS Allergies Allergy/AdvReac Type Severity Reaction Status Date / Time No Known Allergies Allergy Verified 09/02/18 12:28 Home Medications Medication Instructions Recorded Confirmed Type lamotrigine [Lamictal] 100 mg PO QAM 09/02/18 09/02/18 History lamotrigine [Lamictal] 200 mg PO HS 09/02/18 09/02/18 History levetiracetam [Keppra] 1,500 mg PO BID 09/02/18 09/02/18 History oxcarbazepine [Trileptal] 300 mg PO BID 09/02/18 09/02/18 History Exam Vital signs: Vital Signs 09/02/18 12:22 09/02/18 12:28 Temperature 98 F Pulse Rate 94 H 82 Respiratory Rate 18 18 Blood Pressure 135/89 148/87 H Pulse Oximetry 97 98 Intake & Output 09/01/18 09/02/18 09/02/18 18:59 06:59 18:59 Intake Total 1000 / 1000 Balance 1000 / 1000 Weight 72.575 kg Intake: IV 1000 / 1000 NS Inj 1,000 ML @ Wide Open IV. 1000 / 1000 SIG BOLUS ONE Rx#:[id number] Narrative: The patient is alert, awake. Comfortable, in no acute distress. Speech is fluent. Cranial nerve examination: pupils to be equal, round and reactive to light. Extra-ocular movements are intact. Facial motor and sensory function are normal and symmetrical. Gross hearing appears intact. Sternocleidomastoid and trapezius muscles are symmetrical. Other cranial nerves are intact. Neck is soft and supple with a good range of motion without pain. Muscle strength is normal in all muscle groups of both upper and lower extremities. Sensory examination is intact to light touch and pin prick in both the upper and lower extremities. Deep tendon reflexes are symmetrical in both upper and lower extremities. There is a bilateral plantar flexion response. Cerebellar examination is unremarkable, without deficits. Lungs are clear Heart regular rhythm is regular rate Skin warm and dry Results - Laboratory Findings CBC and BMP: 09/03/18 03:19 09/03/18 03:19 Abnormal lab findings: Abnormal Labs 09/02/18 09/02/18 12:50 12:50 Hgb 17.2 H Neut % (Auto) 70.3 H [place] % (Auto) 8.6 H Sodium 130 L Potassium 3.0 L Anion Gap 3 L Estimated GFR 78 L Random Glucose 155 H Assessment and Plan - Plan I have reviewed the clinical and radiological findings Head CT 09/02/18 12:43 CONCLUSION: 1. Apparent vasogenic edema extends into the left parietal lobe and there is 4 mm of subfalcine herniation to the right. MRI of the brain with contrast would be helpful to rule out underlying lesion resulting in extensive vasogenic edema on the left. No acute hemorrhage is noted. No definite acute infarct is noted. 2. Large collection of CSF within the left temporal region. Chest X-Ray 09/02/18 12:46 CONCLUSION: Negative examination. Neuro: neuro checks in a serial fashion. 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 Recommend to obtain old records from [facility]. There is a significant risk for morbidity with aphasia and possible right hemiparesis or hemiplegia. Nora discussed the [id number] details of the surgical procedure , its indications, alternatives, risks, and potential complications. Risks and potential complications include, but are not limited to, infection, blood loss, CSF leak, partial or complete loss of sight in one or both eyes, paresis, paralysis, permanent pain or difficulty swallowing, loss of bowel or bladder function, complications from anesthesia, blood clot, stroke, myocardial infarction, or even . I recommend to transfer the patient to a [facility] [place] setting Pulmonary: aggressive pulmonary toilette, nasotracheal suction, and breathing treatments with nebulizers. Daily PT and OT Renal: Continue to monitor closely urine output, BUN and creatinine Endocrine: Continue to Monitor serial Acu checks and SSI as needed in detail ID continue to monitor for signs of infection Continue Protonix for stress ulcer prophylaxis Continue Teodoro hose and SCD's for DVT prophylaxis Discussed with Dr Jordan and Dr sandee caldera
[2018-09-02] MEDS ORDERED: niCARdipine Inj 25 MG in Sodium Chlor 0.9% Inj 240 ML IV.CONT PRN (16:30)
--- NOTE | 2018-09-02 17:09 | P.DS ---
Date of admission: 09/02/18 15:31 Primary care physician: No Primary Care Physician Attending physician on discharge: Vick Jordan Anticipated date of discharge: 09/02/18 Brief History from admission: This is a 48-year-old male. Date of admission 09/02/2018. Past medical history includes seizure disorder NOS.. 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 He states there was a part of treatment they were unable to remove. He had follow-ups until 2014 at [facility] which he states were "stable. He has not received follow-up until approximately 3 months ago he saw Dr. Brown where he states that this tumor mass was found and he recommended follow-up with Dr. Sotomayor as an outpatient. Currently, patient is on levetiracetam, lamotrigine and oxcarbazepine. Recently within the past several weeks, patient has had "10-12" seizures daily. No prodrome according to patient. Patient deficits appear to be right-sided with lifting the right leg and blank stare to the right and snapping/movement of the right upper extremity. Patient is on [address] brain today revealed right parietal lobe mass with vasogenic edema with a 4 mm subfalcine shift/herniation. MRI brain was recommended. Dr. Brown/ neurology was consulted. Currently on dexamethasone 4 mg IV every 6 hours. Continue antiepileptics. Neurological consultation with Dr. Sotomayor is currently ongoing. Patient is currently undergoing an MRI of the brain. This revealed post left craniotomy with a large cystic area involving the lower temporal lobe region measuring up to approximately 6.3 x 4.6 cm in greatest AP and transverse diameter. Directly above and contiguous with this is a large masslike region measuring up to 6.6 x 5 cm in greatest AP and transverse diameter with no significant enhancement. This encases portions of the left middle cerebral artery. This involves portions of the left temporal lobe as well as the inferior frontal lobe and parietal lobe. There is mass effect and midline shift to the left of approximately 7 mm. Portions of the left lateral ventricle are partially effaced. Patient was loaded with 1 g levetiracetam in the ED along with 40 mEq potassium chloride for low potassium. Patient update on day of discharge: Patient was advised by Dr. Sotomayor. In reviewing the MRI, decision made to transfer to [facility] for further evaluation. Dr. Ching has accepted DS: Diagnosis - Discharge Diagnosis (1) Seizure Status: Acute (2) Mass of temporoparietal region of brain Status: Acute (3) Acute hypokalemia Status: Acute DS: Summary Hospital Course: Neuro/Psych: Left parietal lobe mass with vasogenic edema/4 mm subfalcine shift/herniation History of left craniotomy for "benign" brain mass per patient report Seizure disorder CT brain revealed left parietal lobe vasogenic edema [address] Brown/neurology recommended expansile focus IV every 6 hours. Resume antibiotics including levetiracetam 1500 mg twice daily, oxcarbazepine 300 mg twice daily and lamotrigine 100 mg in the morning 200 mg at night. Seizure precautions MRI brain revealed post left craniotomy with a large cystic area involving the lower temporal lobe region measuring up to approximately 6.3 x 4.6 cm in greatest AP and transverse diameter. Directly above and contiguous with this is a large masslike region measuring up to 6.6 x 5 cm in greatest AP and transverse diameter with no significant enhancement. This encases portions of the left middle cerebral artery. This involves portions of the left temporal lobe as well as the inferior frontal lobe and parietal lobe. There is mass effect and midline shift to the left of approximately 7 mm. Portions of the left lateral ventricle are partially effaced. The masslike area demonstrates high signal on the T2 and FLAIR weighted images and is mildly inhomogeneous. On the T1-weighted images this demonstrates low signal. Dr. Sotomayor/neurosurgery will evaluate CV: Currently normal sinus rhythm. No indications for hypertensive's and/or vasopressors As needed labetalol and nicardipine drip ordered Resp: Former tobaccoism Nasal cannula to maintain saturations greater than equal to 92% Incentive spirometry while awake As needed albuterol aerosols every [address]. [address] pulmonary angiogram revealed emphysematous type changes 2017 GI: N.p.o. except for medications Pantoprazole for GI prophylaxis Docusate sodium/senna 1 tablet twice daily for bowel regimen : Straight cathed every 6 hours as needed Endo: Hyperglycemia/acute Sliding scale insulin Accu-Cheks to maintain euglycemia aspart insulin every 6 hours medium protocol. Renal: Creatinine currently within normal limits Monitor urine output Accurate I's and O's Heme: Polycythemia Monitor CBC daily. Follow trends. No indication for transfusion of blood products at this time ID: Monitor for signs and symptomatology infection FEN: Hypopotassemia Hyponatremia Received 40 mEq potassium chloride in ED. Currently 2% saline at 42 cc an hour. Check every 6 hours sodiums MSK: History of right total knee replacement PT evaluate and treat Access -Utilize peripheral IV. Central line if indicated Prophylaxis - GI - Pantoprazole - DVT - SCD/no pharmacologic prophylaxis in light of intracranial lesions Patient was evaluated by Dr. Sotomayor. Recommended transfer to tertiary facility for definitive evaluation. Discussed with /neurosurgery who graciously accepted in transfer. - Time Spent with Patient Total time spent providing and/or coordinating discharge services: Less than 30 minutes Exam Vital signs: Vital Signs 09/02/18 12:22 09/02/18 12:28 09/02/18 15:35 Temperature 98 F Pulse Rate 94 H 82 65 Respiratory Rate 18 18 18 Blood Pressure 135/89 148/87 H 127/86 Pulse Oximetry 97 98 Intake & Output 09/01/18 09/02/18 09/02/18 18:59 06:59 18:59 Intake Total 1105 / 1105 Balance 1105 / 1105 Weight 72.575 kg Intake: IV 1105 / 1105 NS Inj 1,000 ML @ Wide Open IV. 1000 / 1000 SIG BOLUS ONE Rx#:[id number] Keppra Inj 500 MG In NS Inj 100 105 / 105 ML @ 400 mls/hr IV.SIG ONCE ONE Rx#:[id number] Results Procedures completed during hospitalization: None Completed studies during hospitalization: Head CT 09/02/18 12:43 CONCLUSION: 1. Apparent vasogenic edema extends into the left parietal lobe and there is 4 mm of subfalcine herniation to the right. MRI of the brain with contrast would be helpful to rule out underlying lesion resulting in extensive vasogenic edema on the left. No acute hemorrhage is noted. No definite acute infarct is noted. 2. Large collection of CSF within the left temporal region. . Chest X-Ray 09/02/18 12:46 CONCLUSION: Negative examination. Head MRI 09/02/18 14:39 CONCLUSION: 1. Status post left craniotomy. 2. Large masslike area involving portions of the temporal, frontal and parietal lobe with no significant enhancement. There is an adjacent large cystic structure as well which may be postsurgical. The differential diagnosis includes tumefactive necrosis from radiation and/or chemotherapy versus residual tumor. Further evaluation with MR spectroscopy or short-term follow-up would be recommended. Pending studies at discharge: None Labs on day of discharge: Labs from last 24 hours 09/02/18 09/02/18 09/02/18 12:50 12:50 12:50 WBC RBC Hgb Hct MCV MCH MCHC RDW Plt Count MPV Neut % (Auto) Lymph % (Auto) [place] % (Auto) Eos % (Auto) Baso % (Auto) Neut # (Auto) Lymph # (Auto) [place] # (Auto) Eos # (Auto) Baso # (Auto) WBC Differential Differential Comment Sodium 130 L Potassium 3.0 L Chloride 98 Carbon Dioxide 28.8 Anion Gap 3 L BUN 15 Creatinine 1.02 Estimated GFR 78 L Random Glucose 155 H Calcium 9.3 Total Creatine Kinase 60 Oxcarbazepine Pending Lamotrigine Pending Levetiracetam Pending 09/02/18 12:50 WBC 10.2 RBC 5.20 Hgb 17.2 H Hct 48.8 MCV 93.8 MCH 33.1 MCHC 35.2 RDW 13.4 Plt Count 251 MPV 8.5 Neut % (Auto) 70.3 H Lymph % (Auto) 20.2 [place] % (Auto) 8.6 H Eos % (Auto) 0.3 Baso % (Auto) 0.6 Neut # (Auto) 7.1 Lymph # (Auto) 2.1 [place] # (Auto) 0.9 Eos # (Auto) 0.0 Baso # (Auto) 0.1 WBC Differential . Differential Comment Auto diff final Sodium Potassium Chloride Carbon Dioxide Anion Gap BUN Creatinine Estimated GFR Random Glucose Calcium Total Creatine Kinase Oxcarbazepine Lamotrigine Levetiracetam - Impressions ITS Impressions Head CT 09/02/18 12:43 CONCLUSION: 1. Apparent vasogenic edema extends into the left parietal lobe and there is 4 mm of subfalcine herniation to the right. MRI of the brain with contrast would be helpful to rule out underlying lesion resulting in extensive vasogenic edema on the left. No acute hemorrhage is noted. No definite acute infarct is noted. 2. Large collection of CSF within the left temporal region. . Chest X-Ray 09/02/18 12:46 CONCLUSION: Negative examination. Head MRI 09/02/18 14:39 CONCLUSION: 1. Status post left craniotomy. 2. Large masslike area involving portions of the temporal, frontal and parietal lobe with no significant enhancement. There is an adjacent large cystic structure as well which may be postsurgical. The differential diagnosis includes tumefactive necrosis from radiation and/or chemotherapy versus residual tumor. Further evaluation with MR spectroscopy or short-term follow-up would be recommended. Discharge Plan - Discharge Disposition Patient Disposition: 70 Transfer To Other Facility - Discharge Condition Condition: Critical - Discharge Details Anticipated Discharge Date: 09/02/18 - Physicians Team Primary Care Provider: Primary Care Marysol Marinelli Attending Provider: Vick Jordan Other Providers: Ruy Sotomayor MD ; Sterling Brown MD, PhD
[2018-09-02] MEDS ORDERED: Insulin NovoLOG Aspart Correctional Sugar Inj SQ SCH (18:00)
[2018-09-02 18:11] VITALS: O2SAT 99
[2018-09-02] MEDS ORDERED: OXcarbazepine 300 MG Tablet PO SCH (21:00)
[2018-09-02] MEDS ORDERED: Senna/Docusate Sodium 8.6/50 MG Tablet PO SCH (21:00)
[2018-09-02] MEDS ORDERED: levETIRAcetam 500 MG Tablet PO SCH (21:00)
[2018-09-02] MEDS ORDERED: lamoTRIgine 100 MG Tablet PO SCH (21:00)
[2018-09-03] MEDS ORDERED: Chlorhexidine Gluconate 2% 1 Pack (2 Cloths) TOPICAL SCH (04:00)
[2018-09-03] MEDS ORDERED: Chlorhexidine Gluconate 2% 1 Pack (2 Cloths) TOPICAL PRN (04:00)
[2018-09-03 04:03] LABS: Baso % (Auto) 0.3 % (0.0-2.0); Eos % (Auto) 0.4 % (0.0-4.0); Hematocrit 44.3 % (39.0-51.0); Hemoglobin 15.2 gm/dL (13.0-17.0); Lymph # (Auto) 2.3 th/mm3 (1.0-4.8); Lymph % (Auto) 28.3 % (9.0-44.0); Mean Corpuscular HGB Conc 34.3 % (32.0-36.0); Mean Corpuscular Hemoglobin 32.9 pg (27.0-34.0); Mean Platelet Volume 8.4 fL (7.0-11.0); Mono # (Auto) 0.8 th/mm3 (0.0-0.9); Mono % (Auto) 9.9 % (0.0-8.0); Neut # (Auto) 4.9 th/mm3 (1.8-7.7); Neut % (Auto) 61.1 % (16.0-70.0); Platelet Count 212 th/mm3 (150-450); Red Blood Count 4.61 mil/mm3 (4.50-5.90)
[2018-09-03 04:09] LABS: Activated Partial Thrombo Time 25.4 sec (24.3-30.1); INR 1.1 Ratio; Prothrombin Time 10.8 sec (9.8-11.6)
[2018-09-03 04:29] LABS: Alanine Aminotransferase 14 U/L (12-78); Albumin 3.5 g/dL (3.4-5.0); Anion Gap 10 meq/L (5-15); Aspartate Aminotransferase 11 U/L (15-37); Blood Urea Nitrogen 10 mg/dL (7-18); Calcium 7.9 mg/dL (8.5-10.1); Chloride 106 meq/L (98-107); Glomerular Filtration Rate Greater Than 89 mL/min (>89); Glucose,Random 86 mg/dL (74-106); Magnesium 2.2 mg/dL (1.5-2.5); Phosphorus 2.8 mg/dL (2.5-4.9); Sodium 142 meq/L (136-145)
[2018-09-03 04:41] LABS: Alkaline Phosphatase 52 U/L (45-117); Total Protein 6.6 g/dL (6.4-8.2)
[2018-09-03 04:45] VITALS: BP 128/76; PULSE 56; RESP 24; TEMP 98.3
[2018-09-03] MEDS ORDERED: Influenza (Quadrivalent) Vaccine 0.5 ML Syringe IM ONE (09:00)
[2018-09-03] MEDS ORDERED: lamoTRIgine 100 MG Tablet PO SCH (09:00)
--- NOTE | 2018-09-03 12:11 | ECG ---
Date Performed: 09/02/2018 Time Performed: 12:45:56 PTAGE: 48 years EKG: Sinus rhythm LEFT ATRIAL ENLARGEMENT ABNORMAL ECG PREVIOUS TRACING .50 Since the previous tracing, no significant change noted DOCTOR: Jesse Christina Interpretating Date/Time 09/03/2018 12:10:38
[2018-09-03 14:55] LABS: Levetiracetam 35.8 mcg/mL (12.0 - 46.0)
[2018-09-06 11:51] LABS: Lamotrigine 5.1 mcg/mL (4.0-18.0)
== END 2018-09-03 04:55 | disposition short-term general hospital (02) ==
LOC: NEPC 12:20 → NEDA 15:31 → N03 16:31
PROVIDERS: ADMIT Internal Medicine Critical Care Medicine; ATTEND Internal Medicine Critical Care Medicine